=== PATIENT | female | born 1975 | race Caucasian/White ===

== ENCOUNTER → 2024-01-16 20:06 | Outpatient (REF) | payer OTHER, SELFPAY | LOC: MRI 3T 20:06 | PROVIDERS: ATTENDING PHYSICIAN Psychiatry & Neurology Neurology; FAMILY PHYSICIAN Family Medicine | DX: G35 Multiple sclerosis (principal) | CPT/HCPCS: 70553 ==

== ENCOUNTER → 2024-04-16 20:14 | Outpatient (REF) | payer OTHER, SELFPAY | LOC: MRI 3T 20:14 | PROVIDERS: ATTENDING PHYSICIAN Psychiatry & Neurology Neurology | DX: G35 Multiple sclerosis (principal) | CPT/HCPCS: 72148 ==